=== PATIENT | male | born 1960 | race Caucasian/White ===

== ENCOUNTER 2018-02-15 07:28 | Emergency (ER) | payer OTHER ==
[2018-02-15] MEDS ORDERED: IPRATROPIUM BROM 0.5MG/2.5ML ONE (07:55)
[2018-02-15] MEDS ORDERED: ALBUTEROL 2.5 MG/3 ML NEB SOL ONE (07:55)
[2018-02-15] MEDS ORDERED: predniSONE 20 MG TAB ONE (07:56)
[2018-02-15 08:23] LABS: Protime INR 1.11
[2018-02-15 08:31] LABS: Bicarbonate 32 mEq/L (21-31); Glucose Level 105 mg/dL (65-120); Potassium 3.9 mEq/L (3.6-5.0); Sodium Level 137 mEq/L (135-145)
[2018-02-15 08:37] LABS: ALT/SGPT 14 IU/L (10-60); AST/SGOT 30 IU/L (10-42); Albumin 4.6 g/dL (3.2-5.5); Alkaline Phosphatase 69 IU/L (42-121); BUN Blood Urea Nitrogen 9 mg/dL (6-20); Bilirubin Direct 0.1 mg/dL (0-0.2); Bilirubin Total 0.8 mg/dL (0.3-1.2); Creatine Phosphokinase 169 IU/L (22-269); Magnesium 1.6 mg/dL (1.8-2.5); Protein, Total 7.8 g/dL (6.0-8.3)
[2018-02-15 08:39] LABS: Absolute Lymphocytes (CBC) 1.1 K/uL (0.7-4.9); Absolute Monocytes 0.6 K/uL (0.1-1.3); Absolute Neutrophil 9.7 K/uL (1.8-8.0); Basophils % 0.4 % (0-1.3); Eosinophils % 1.4 % (0-4.4); Hematocrit 37.4 % (39.6-49.0); Lymphocytes % 9.8 % (15.3-44.8); MCH 31.5 pg (27.0-35.0); MCV 92.6 fL (80-100); MPV 7.3 fL (7.6-11.3); Monocytes % 5.2 % (3.3-12.3); RBC Red Blood Cell Count 4.04 M/uL (4.33-5.43)
[2018-02-15 08:40] LABS: CKMB Creatine Kinase MB 2.6 ng/ml (0.3-4.0)
[2018-02-15] MEDS ORDERED: MAGNESIUM SULFATE 1 gm IVPB 1 GM/100 ML BAG IV ONE (09:18)
--- NOTE | 2018-02-15 09:50 | RAD REPORT ---
EXAM DESCRIPTION: Marlene Single View02/15/2018 8:34 am CLINICAL HISTORY: Cough COMPARISON: October 2017 FINDINGS: The lungs appear clear of acute infiltrate. The lungs are hyperaerated. The heart is normal size. Thornton rods have been placed into the thoracic spine IMPRESSION: No acute abnormalities displayed
--- NOTE | 2018-02-15 10:05 | ER ---
Nurse's Notes [facility] Name: Nikhil Cruz Jr Age: 57 yrs Sex: Male : 1960 Arrival Date: 02/15/2018 Time: 07:31 Bed 13 Private MD: Diagnosis: Bronchitis, not specified as acute or chronic Presentation: 02/15 07:32 Presenting complaint: Patient states: SOB that began today around 0130. Pt also reports aa5 cough. 07:32 Transition of care: patient was not received from another setting of care. Onset of aa5 symptoms was February 15, 2018. Initial Sepsis Screen: Does the patient meet any 2 criteria? No. Patient's initial sepsis screen is negative. Does the patient have a suspected source of infection? No. Patient's initial sepsis screen is negative. Care prior to arrival: None. 07:32 Method Of Arrival: Ambulatory aa5 07:32 Acuity: ANGEL 3 aa5 Historical: - Allergies: 07:33 fish; aa5 07:33 red ants; aa5 - PMHx: 07:33 Back pain; Chronic pain; High Cholesterol; neuropathy; spinal cord injury; aa5 - Immunization history:: Adult Immunizations up to date. - Social history:: Smoking status: Patient/guardian denies using tobacco. Screenin:00 Abuse screen: Denies threats or abuse. Denies injuries from another. hb 08:00 Nutritional screening: No deficits noted. Tuberculosis screening: No symptoms or risk hb factors identified. Fall Risk None identified. Assessment: 07:45 General: Appears in no apparent distress. Behavior is calm, cooperative. Pain: Denies hb pain. Neuro: Level of Consciousness is awake, alert, obeys commands, Oriented to person, place, time, situation. Cardiovascular: Heart tones S1 S2 present Capillary refill < 3 seconds Patient's skin is warm and dry. Rhythm is regular. Respiratory: Airway is patent Trachea midline Respiratory effort is even, mildly labored Respiratory pattern is regular, symmetrical, Breath sounds are clear bilaterally. GI: No signs and/or symptoms were reported involving the gastrointestinal system. : No signs and/or symptoms were reported regarding the genitourinary system. EENT: No signs and/or symptoms were reported regarding the EENT system. Derm: No signs and/or symptoms reported regarding the dermatologic system. Skin is pink, warm \T\ dry. Musculoskeletal: No signs and/or symptoms reported regarding the musculoskeletal system. 08:30 Reassessment: Patient appears in no apparent distress at this time. Patient and/or hb family updated on plan of care and expected duration. Pain level reassessed. Patient is alert, oriented x 3, equal unlabored respirations, skin warm/dry/pink. 09:30 Reassessment: Patient appears in no apparent distress at this time. Patient and/or hb family updated on plan of care and expected duration. Pain level reassessed. Patient is alert, oriented x 3, equal unlabored respirations, skin warm/dry/pink. Patient denies pain at this time. Patient states feeling better. Patient states symptoms have improved. 09:30 Reassessment:. hb 10:32 Reassessment: Patient appears in no apparent distress at this time. Patient and/or ch family updated on plan of care and expected duration. Pain level reassessed. Patient is alert, oriented x 3, equal unlabored respirations, skin warm/dry/pink. Patient states feeling better. Patient states symptoms have improved. Vital Signs: 07:32 BP 124 / 80; Pulse 94; Resp 20 S; Pulse Ox 92% on R/A; aa5 07:34 Pulse Ox 97% on 2 lpm NC; aa5 08:04 Temp 98.1(TE); hb 08:30 BP 122 / 76; Pulse 76; Resp 17; Pulse Ox 100% ; hb 09:26 BP 117 / 70; Pulse 78; Resp 18; Pulse Ox 100% on 2 lpm NC; Pain 0/10; hb 10:32 BP 122 / 78; Pulse 81; Resp 16; Temp 98.5; Pulse Ox 99% on R/A; Pain 0/10; ch ED Course: 07:31 Patient arrived in ED. sb2 07:32 Arm band placed on Patient placed in an exam room, on a stretcher. aa5 07:37 Leidy Quijano, PARTH is Primary Nurse. hb 07:37 Triage completed. aa5 07:42 David Lopez NP is PHCP. pm1 07:42 Chilango Urbina MD is Attending Physician. pm1 08:02 Inserted saline lock: 20 gauge in right antecubital area, using aseptic technique. hb Blood collected. 08:32 X-ray completed. Portable x-ray completed in exam room. Patient tolerated procedure jb2 well. 08:33 XRAY Chest (1 view) In Process Unspecified. EDMS 08:45 EKG done, by surgical technologist. reviewed by David Lopez NP. tc 10:32 No apparent distress. Resting quietly. ch 10:32 Patient has correct armband on for positive identification. Side rails up X2. ch 10:32 No provider procedures requiring assistance completed. IV discontinued, intact, ch bleeding controlled, No redness/swelling at site. Pressure dressing applied. Administered Medications: 08:00 Drug: Albuterol 2.5 mg Route: Inhalation; hb 08:00 Drug: AtroVENT Aerosol 0.5 mg Route: Inhalation; hb 08:00 Drug: predniSONE 60 mg Route: PO; hb 10:33 Follow up: Response: No adverse reaction; Marked relief of symptoms 09:19 Drug: Magnesium Sulfate 1 grams Route: IVPB; Infused Over: 1 hrs; Site: right hb antecubital; 10:33 Follow up: IV Status: Completed infusion; IV Intake: 100ml ch Intake: 10:33 IV: 100ml; Total: 100ml. ch Outcome: 10:04 Discharge ordered by MD. pm1 10:32 Discharged to home ambulatory, with family. ch 10:32 Condition: stable 10:32 Discharge instructions given to patient, Instructed on discharge instructions, follow up and referral plans. medication usage, Demonstrated understanding of instructions, follow-up care, medications, Prescriptions given X 4. 10:33 Patient left the ED. Signatures: Dispatcher [employer] EDMS Judy Briseno, PARTH ALBA Roland Nam jb2 Sheree Hightower RN RN aa5 Laurie Sigala, in flight refueling system repairer EKG David Matthew NP BUSINESS TRANSFORMATION MANAGER pm1 Leidy Quijano RN RN Rosalia May sb2
--- NOTE | 2018-02-15 10:05 | EDPHYS ---
Physician Documentation [facility] Name: Nikhil Cruz Jr Age: 57 yrs Sex: Male : 1960 Arrival Date: 02/15/2018 Time: 07:31 Bed 13 Private MD: ED Physician Chilango Urbina HPI: 02/15 08:00 This 57 yrs old Male presents to ER via Ambulatory with complaints of pm1 Breathing Difficulty. 08:00 Onset: The symptoms/episode began/occurred this morning. Duration: The symptoms are pm1 continuous. The patient's shortness of breath is aggravated by coughing, is alleviated by nothing. Severity of symptoms: in the emergency department the symptoms are worse. The patient has not recently seen a physician, [facility]. Patient with a cough for about 1 week. Patient denies any fever or chills. Has a sick contact, girlfriend with same symptoms of cough. Patient's cough not really productive, occasionally with clear sputum, over the past week. This morning, patient's shortness of breath increased, with coughing this morning at 0100. Has not been taking any medications for his cough. Chest pain present with coughing.. Historical: - Allergies: 07:33 fish; aa5 07:33 red ants; aa5 - PMHx: 07:33 Back pain; Chronic pain; High Cholesterol; neuropathy; spinal cord injury; aa5 - Immunization history:: Adult Immunizations up to date. - Social history:: Smoking status: Patient/guardian denies using tobacco. ROS: 08:00 Constitutional: Negative for fever, chills, and weight loss, Eyes: Negative for injury, pm1 pain, redness, and discharge, ENT: Negative for injury, pain, and discharge, Neck: Negative for injury, pain, and swelling. 08:00 Abdomen/GI: Negative for abdominal pain, nausea, vomiting, diarrhea, and constipation, Back: Negative for injury and pain. 08:00 : Negative for injury, bleeding, discharge, and swelling, MS/Extremity: Negative for injury and deformity, Skin: Negative for injury, rash, and discoloration, Neuro: Negative for headache, weakness, numbness, tingling, and seizure. 08:00 Cardiovascular: Positive for chest pain, with cough, Negative for edema, palpitations. 08:00 Respiratory: Positive for cough, with clear sputum, shortness of breath. Exam: 10:17 Constitutional: This is a well developed, well nourished patient who is awake, alert, pm1 and in no acute distress. Head/Face: Normocephalic, atraumatic. Eyes: Pupils equal round and reactive to light, extra-ocular motions intact. Lids and lashes normal. Conjunctiva and sclera are non-icteric and not injected. Cornea within normal limits. Periorbital areas with no swelling, redness, or edema. ENT: Nares patent. No nasal discharge, no septal abnormalities noted. Tympanic membranes are normal and external auditory canals are clear. Oropharynx with no redness, swelling, or masses, exudates, or evidence of obstruction, uvula midline. Mucous membranes moist. Neck: Trachea midline, no thyromegaly or masses palpated, and no cervical lymphadenopathy. Supple, full range of motion without nuchal rigidity, or vertebral point tenderness. No Meningismus. Chest/axilla: Normal chest wall appearance and motion. Nontender with no deformity. No lesions are appreciated. Cardiovascular: Regular rate and rhythm with a normal S1 and S2. No gallops, murmurs, or rubs. Normal PMI, no JVD. No pulse deficits. 10:17 Abdomen/GI: Soft, non-tender, with normal bowel sounds. No distension or tympany. No guarding or rebound. No evidence of tenderness throughout. Back: No spinal tenderness. No costovertebral tenderness. Full range of motion. Skin: Warm, dry with normal turgor. Normal color with no rashes, no lesions, and no evidence of cellulitis. MS/ Extremity: Pulses equal, no cyanosis. Neurovascular intact. Full, normal range of motion. 10:17 Respiratory: the patient does not display signs of respiratory distress, Respirations: normal, Breath sounds: wheezing: is heard diffusely. 10:17 Neuro: Orientation: is normal, Motor: is normal, moves all fours, Sensation: is normal, no obvious gross deficits. Vital Signs: 07:32 BP 124 / 80; Pulse 94; Resp 20 S; Pulse Ox 92% on R/A; aa5 07:34 Pulse Ox 97% on 2 lpm NC; aa5 08:04 Temp 98.1(TE); hb 08:30 BP 122 / 76; Pulse 76; Resp 17; Pulse Ox 100% ; hb 09:26 BP 117 / 70; Pulse 78; Resp 18; Pulse Ox 100% on 2 lpm NC; Pain 0/10; hb 10:32 BP 122 / 78; Pulse 81; Resp 16; Temp 98.5; Pulse Ox 99% on R/A; Pain 0/10; ch MDM: 07:43 Patient medically screened. pm1 09:46 Data reviewed: vital signs. Data interpreted: Pulse oximetry: on room air is 100 %. pm1 Interpretation: normal. Counseling: I had a detailed discussion with the patient and/or guardian regarding: the historical points, exam findings, and any diagnostic results supporting the discharge/admit diagnosis, lab results, radiology results, the need for outpatient follow up, to return to the emergency department if symptoms worsen or persist or if there are any questions or concerns that arise at home. 10:00 Medication response: albuterol nebulizer treatment(s) relieved the patient's symptoms. pm1 The patient is no longer wheezing. 10:02 ED course: Will prescribe patient antibiotics due to chornic history of shortness of pm1 breath due to asbestosis. 02/15 07:53 Order name: Basic Metabolic Panel; Complete Time: 08:46 pm02/15 07:53 Order name: BNP; Complete Time: 09:25 pm02/15 07:53 Order name: CBC with Diff; Complete Time: 08:46 pm02/15 07:53 Order name: Ckmb; Complete Time: 08:46 pm02/15 07:53 Order name: CPK; Complete Time: 08:46 pm02/15 07:53 Order name: LFT's; Complete Time: 08:46 pm02/15 07:53 Order name: Magnesium; Complete Time: 08:46 pm02/15 07:53 Order name: PT-INR; Complete Time: 08:46 pm02/15 07:53 Order name: Ptt, Activated; Complete Time: 08:46 pm02/15 07:53 Order name: Troponin (emerg Dept Use Only); Complete Time: 08:46 pm02/15 07:53 Order name: XRAY Chest (1 view); Complete Time: 10:02 pm02/15 07:53 Order name: EKG; Complete Time: 07:54 pm02/15 07:53 Order name: Cardiac monitoring; Complete Time: 08:08 pm1 02/15 07:53 Order name: EKG - Nurse/Tech; Complete Time: 08:50 pm1 02/15 07:53 Order name: IV Saline Lock; Complete Time: 08:07 pm1 02/15 07:53 Order name: Labs collected and sent; Complete Time: 08:07 pm1 02/15 07:53 Order name: O2 Per Protocol; Complete Time: 08: pm1 02/15 07:53 Order name: O2 Sat Monitoring; Complete Time: 08: pm1 Administered Medications: 08:00 Drug: Albuterol 2.5 mg Route: Inhalation; hb 08:00 Drug: AtroVENT Aerosol 0.5 mg Route: Inhalation; hb 08:00 Drug: predniSONE 60 mg Route: PO; hb 10:33 Follow up: Response: No adverse reaction; Marked relief of symptoms 09:19 Drug: Magnesium Sulfate 1 grams Route: IVPB; Infused Over: 1 hrs; Site: right hb antecubital; 10:33 Follow up: IV Status: Completed infusion; IV Intake: 100ml Disposition: 22:18 Co-signature as Attending Physician, Chilango Urbina MD I agree with the assessment and kdr plan of care. Disposition: 02/15/18 10:04 Discharged to Home. Impression: Bronchitis, not specified as acute or chronic. - Condition is Stable. - Discharge Instructions: Acute Bronchitis, How to Use an Inhaler. - Prescriptions for Prednisone 20 mg Oral Tablet - take 3 tablet by ORAL route once daily for 5 days; 15 tablet. Albuterol Sulfate 90 mcg/actuation - inhale 1-2 puff by INHALATION route every 4-6 hours; 1 Inhaler. Guaifenesin AC 10- 100 mg/5 mL Oral Liquid - take 10 milliliter by ORAL route every 4 hours As needed; 240 milliliter. Zithromax Z- Devonte 250 mg Oral Tablet - take 1 tablet by ORAL route as directed for 5 days Day 1 - take two (2) tablets one time. Day 2, 3, 4 , 5 take one (1) tablet once daily.; 6 tablet. - Medication Reconciliation Form, Thank You Letter, Antibiotic Education, Prescription Opioid Use form. - Follow up: Emergency Department; When: As needed; Reason: Worsening of condition. Follow up: Private Physician; When: 2 - 3 days; Reason: Recheck today's complaints, Continuance of care, Re-evaluation by your physician. - Problem is new. - Symptoms have improved. Signatures: Dispatcher [employer] EDJudy Joya, RN RN Chilango Urbina MD MD [facility] Sheree Hightower RN RN aa5 David Lopez, FACTORY LAY OUT ENGINEER FACTORY LAY OUT ENGINEER pm1 Leidy Quijano RN RN Corrections: (The following items were deleted from the chart) 10:33 10:04 02/15/2018 10:04 Discharged to Home. Impression: Bronchitis, not specified as ch acute or chronic. Condition is Stable. Forms are Medication Reconciliation Form, Thank You Letter, Antibiotic Education, Prescription Opioid Use. Follow up: Emergency Department; When: As needed; Reason: Worsening of condition. Follow up: Private Physician; When: 2 - 3 days; Reason: Recheck today's complaints, Continuance of care, Re-evaluation by your physician. Problem is new. Symptoms have improved. pm1
--- NOTE | 2018-02-15 11:58 | EKG ---
Test Date: 2018-02-15 Test Time: 08:33:13 Podiatry Teacher: KAYLA MEASUREMENT RESULTS: Intervals: Rate: 82 CO: 132 QRSD: 86 QT: 364 QTc: 425 [place]: P: 67 CO: 132 QRS: 77 T: 79 INTERPRETIVE STATEMENTS: Normal sinus rhythm Normal ECG Compared to ECG 10/20/2017 00:01:18 Myocardial infarct finding no longer present Electronically Signed On 02-15-18 11:58:30 CDT by Scott Romero
== END 2018-02-15 10:33 | disposition home or self-care (01) ==
LOC: ER 07:28
DX: J40 Bronchitis, not specified as acute or chronic (principal); Z91.038 Other insect allergy status; Z91.013 Allergy to seafood
CPT/HCPCS: 36415; 71045; 80048; 80076; 82550; 82553; 83735; 83880; 84484; 85025; 85610; 85730; 93005; 96365; 99284; J3475; J7512